=== PATIENT | male | born 1995 | race Asian ===

== ENCOUNTER 2020-06-28 07:14 | Outpatient (CLI) | payer BC ==
[2020-06-29 13:36] LABS: SARS-CoV-2 MS2 Positive; SARS-CoV-2 N Gene Negative; SARS-CoV-2 S Gene Negative; SARS-CoV-2 by NAA Not Detected (NotDetected); SARS-CoV-2 orf1ab Negative
== END 2020-06-28 07:15 | disposition home or self-care (01) ==
LOC: LABBT 07:14
PROVIDERS: ATTEND Specialist
DX: R22.2 Localized swelling, mass and lump, trunk (principal); R13.10 Dysphagia, unspecified; R59.9 Enlarged lymph nodes, unspecified; Z20.828 Contact with and (suspected) exposure to other viral communicable diseases
CPT/HCPCS: 87635; U0003

== ENCOUNTER 2020-07-01 09:35 | Day surgery (SDC) | payer BC ==
[2020-06-29 14:30] VITALS: BMI 30.9
[~2020-07-01 09:35] MED LIST: Dexamethasone 20 MG/5 ML VIAL ONE; Ketorolac Tromethamine 30 MG/ML VIAL ONE; Lidocaine 1% PF 5 ML VIAL ONE; Ondansetron PF 4 MG/2 ML Vial ONE; PHENYLEPHRINE-NS 100 MCG/ML 10 ML SYRINGE ONE; PROPOFOL 200 MG/20 ML VIAL ONE
[2020-07-01] MEDS ORDERED: Bacitracin Zinc Ointment 30 gm TUBE ONE (10:20)
[2020-07-01] MEDS ORDERED: Lidocaine 1% w/Epinephrine 1:100K 20 ML VIAL ONE (10:20)
[2020-07-01] MEDS ORDERED: Fentanyl 100 MCG/2 ML VIAL ONE ×2 (10:26→12:37)
[2020-07-01] MEDS ORDERED: Acetaminophen 500 MG TAB ONE (10:30)
[2020-07-01] MEDS ORDERED: Midazolam HCl 2 mg/2 ml Vial ONE (10:30)
--- NOTE | 2020-07-02 13:50 | OP ---
DATE OF PROCEDURE: 07/01/2020 PREOPERATIVE DIAGNOSIS: Right inferior neck mass. POSTOPERATIVE DIAGNOSIS: Right inferior neck mass in the supraclavicular region. PROCEDURES PERFORMED: 1. Microsuspension laryngoscopy. 2. Excision of deep right neck mass. PROCEDURE IN DETAIL: The patient was identified, brought to the OR, placed on the operating table in supine position. General endotracheal anesthesia was obtained and the patient underwent systematic examination of the oral cavity, oropharynx, hypopharynx, and larynx. No significant abnormalities were found with regard to any mucosal abnormalities suspicious for neoplasia. We then prepped and draped the patient and positioned him for neck surgery. An incision was made over the supraclavicular area and over the sternocleidomastoid muscle. Incision was carried down through the skin, subcutaneous tissues, and ultimately, we were able to identify the fascia of the sternocleidomastoid muscle. We then went posterior to the sternocleidomastoid muscle and that from a large inflammatory mass. The specimen was meticulously dissected from that area and it was juxtaposed and adhesed to the great vessels, and great care was made during the dissection to avoid injury to the great vessels and to maintain hemostasis. At the completion of the procedure, the inflammatory lesion was removed and sent for histologic evaluation. Cultures were obtained for acid-fast bacteria, fungal elements, as well as well standard. Also fresh tissue was sent for lymphoma studies. After hemostasis was obtained, the drain was placed deep in the wound and the wound was closed in layers with Monocryl to reapproximate the deep layers and 5-0 Prolene for the skin. Sterile dressing was applied. The patient was awakened, extubated, and taken to the recovery room in stable condition prior to discharge to home.. Job ID: [id number]
--- NOTE | 2020-07-20 12:31 | PQF ---
[facility] POST DISCHARGE CLINICAL DOCUMENTATION IMPROVEMENT CLARIFICATION FORM Todays Date: 07/17/20 Patients Name ESTEBAN IQBAL Admit Date 07/01/20 Disch Date 07/01/20 Roast Master Name Mike Woodruff Email: [email or web address]: [phone] To be completed by Roast Master: Present Clinical Indicators - Signs / Symptoms Results and Location in Medical Record [ ] Documentation of: [ ] [ ] Documentation of: [ ] [ ] Documentation of: [ ] [ ] Documentation of: [ ] [ ] Risks [ ] [ ] [ ] Treatment [ ] Granuloma w/ necrosis, right neck mass Query for size w/ margins (cm) of excised mass. [ ] [ ] To be completed by Physician: ANKUR CACERES The documentation in this patients record requires clarification to ensure coding compliance and accuracy. Check the appropriate box and include in your discharge summary. [ ] [ ] [ ] [ ] Please check this box if this does not apply to this patient [ ] Unable to determine [ ] Other diagnosis: Review the following information and exercise your independent professional judgment in responding to the clarification. Based upon the clinical findings, risk factors, and treatment, please clarify if you are treating one of the above probable or suspected diagnoses. Physician Signature: Date Time MTDD
== END 2020-07-01 13:45 | disposition home or self-care (01) ==
LOC: SDC 09:35
PROVIDERS: ATTEND Specialist
PROC: 0CJS8ZZ Inspection of Larynx, Via Natural or Artificial Opening Endoscopic (ICD-10-PCS; principal; 2020-07-01)
DX: L92.8 Other granulomatous disorders of the skin and subcutaneous tissue (principal); I96 Gangrene, not elsewhere classified; R13.10 Dysphagia, unspecified; R59.9 Enlarged lymph nodes, unspecified
CPT/HCPCS: 87070; 87076; 87116; 87205; 87206; 88305; 88312; J1100; J1885; J2250; J2405; J2704; J3010